=== PATIENT | female | born 1955 | race Caucasian/White ===

== ENCOUNTER 2016-12-26 09:42 | Outpatient (RCR) | payer OTHER ==
[~2016-12-26 09:42] MED LIST: ALBU17IN INH; AMLO10TA2 PO; ASPI81TA13 PO; BACL10TA2 PO; BRIL90TA PO; CETI10TA PO; DIVA500T9 PO; DULO30CA PO; FOLI1TAB2 PO; GABA300C3 PO; MELA3TAB PO; METO25TAB PO; OXYC-517 PO; RANI150T PO; SERT-138 PO; TRAZ50TA4 PO; VITA100T2 PO
== END 2016-12-31 ==
LOC: M PT 09:42
PROVIDERS: ATTEND Nurse Practitioner Adult Health
DX: Z51.89 Encounter for other specified aftercare (principal); I63.8 Other cerebral infarction; R26.81 Unsteadiness on feet; G81.91 Hemiplegia, unspecified affecting right dominant side

== ENCOUNTER 2017-02-16 23:11 | Emergency (ER) | payer OTHER ==
[~2017-02-16] VITALS: Ht 167.6 cm; Wt 63.5 kg
[~2017-02-16 23:11] MED LIST changes: +GABA-282 PO; -GABA300C3 PO
[2017-02-16] MEDS ORDERED: AMLO25TA PO (23:40)
[2017-02-16] MEDS ORDERED: ATOR1TAB18 PO (23:40)
[2017-02-16] MEDS ORDERED: BRIL90TA PO (23:40)
[2017-02-16] MEDS ORDERED: SING5CHW23 PO (23:40)
--- NOTE | 2017-02-17 01:00 | REPUSA ---
CLINICAL HISTORY: Shoulder pain. COMMENTS: Mild osteopenia of the visualized bones. Acute mildly displaced fracture of the humeral surgical neck . Associated moderate glenohumeral joint effusion. Soft tissue calcifications at the humeral insertio n of the rotator cuff tendons. Mild degenerative changes are present at the acromioclavicular and glenohumeral joints. No evidence for osteolytic or osteoblastic change. IMPRESSION: Mild osteopenia of the visualized bones. Acute mildly displaced fracture of the humeral surgical neck. Associated moderate glenohumeral joint effusion. Calcific tendinosis.
[2017-02-17] MEDS ORDERED: PERC5TAB6 PO (01:10)
[2017-02-17 01:40] VITALS: BP 89/50
== END 2017-02-17 02:20 | disposition home or self-care (01) ==
LOC: M ED 23:11 → EDBD 23:11 → M ED 02-17 01:05
DX: S42.211A Unspecified displaced fracture of surgical neck of right humerus, initial encounter for closed fracture (principal); W19.XXXA Unspecified fall, initial encounter; Y92.003 Bedroom of unspecified non-institutional (private) residence as the place of occurrence of the external cause; Y93.89 Activity, other specified; Y99.8 Other external cause status; Z88.8 Allergy status to other drugs, medicaments and biological substances; Z91.040 Latex allergy status; Z79.899 Other long term (current) drug therapy; I10 Essential (primary) hypertension; M54.9 Dorsalgia, unspecified; F41.9 Anxiety disorder, unspecified; F32.9 Major depressive disorder, single episode, unspecified; F17.210 Nicotine dependence, cigarettes, uncomplicated

== ENCOUNTER 2017-02-21 21:33 | Emergency (ER) | payer OTHER ==
[~2017-02-21] VITALS: Ht 167.6 cm; Wt 61.2 kg
[~2017-02-21 21:33] MED LIST changes: +AMLO25TA PO; +ATOR1TAB18 PO; -GABA-282 PO; +GABA300C3 PO; +PERC5TAB6 PO; +SING5CHW23 PO
[2017-02-21 21:47] VITALS: BP 120/57
[2017-02-21] MEDS ORDERED: MONT10TA2 PO (22:00)
[2017-02-21] MEDS ORDERED: ASPI81TA7 PO (22:00)
[2017-02-21] MEDS ORDERED: AMLO10TA2 PO (22:00)
[2017-02-21] MEDS ORDERED: NORCO, ANEXSIA 5/325MG TABLET (HYDROcodone/ACETAMINOPHEN) PO ONE (22:00)
[2017-02-21] MEDS ORDERED: MULT1TAB10 PO (22:01)
[2017-02-21] MEDS ORDERED: PROA1AER PO (22:01)
--- NOTE | 2017-02-21 22:20 | REPUSA ---
CT of the head Clinical history: fall. Comparison: 07/21/2016 Protocol: Multiple axial CT images obtained with 5 mm slice thickness were obtained through the head without administration of contrast. Findings: The ventricles and sulci are symmetric but prominent in size bilaterally. There is a aneury sm clip in the region of the left middle cerebral artery. There are periventricular areas of low atte nuation throughout the deep white matter. There is no evidence of acute hemorrhage or infarct. Chroni c encephalomalacia in the left frontal lobe is stable. There is no midline shift, mass effect, or ext ra-axial fluid collection. The osseous structures are unremarkable. The visualized paranasal sinuses and mastoid air cells are clear. Impression: No acute hemorrhage or infarct. Findings are consistent with stable chronic encephalomala sejal of the left frontal lobe.
[2017-02-21 23:06] LABS: MEAN CORPUSCULAR HEMOGLOBIN 30.1 pg (27.0-33.0); MEAN CORPUSCULAR HGB CONC 31.1 g/dl (32.0-36.5); MEAN CORPUSCULAR VOLUME 96.9 fl (80.0-96.0); RED CELL DISTRIBUTION WIDTH 14.9 % (11.5-14.5); WHITE BLOOD COUNT 9.8 K/mm3 (4.0-10.0)
[2017-02-21 23:15] LABS: INR 1.04
[2017-02-21 23:19] LABS: ANION GAP 6 MEQ/L (8-16); BLOOD UREA NITROGEN 20 MG/DL (7-18); CALCIUM LEVEL 8.3 MG/DL (8.8-10.2); CARBON DIOXIDE LEVEL 29 MEQ/L (21-32); CHLORIDE LEVEL 105 MEQ/L (98-107); CREATININE FOR GFR 0.54 MG/DL (0.55-1.02); GLOMERULAR FILTRATION RATE > 60.0 (>45); GLUCOSE, FASTING 109 MG/DL (80-110); POTASSIUM SERUM 3.7 MEQ/L (3.5-5.1); SODIUM LEVEL 140 MEQ/L (136-145)
--- NOTE | 2017-02-22 08:14 | REP ---
Clinical: Fall. Technique: AP view of the pelvis with neutral and frog lateral views of the right hip. Comparison: 08/06/2016. Findings: Moderate diffuse degenerative changes are appreciated which have progressed since prior examination. No obvious acute fracture or dislocation appreciated. Impression: Diffuse degenerative changes. No obvious acute fracture or dislocation. Signed by Darnell Jordan MD 02/22/2017 08:05 A
--- NOTE | 2017-02-22 08:35 | REP ---
Clinical: Trauma. Fall. Technique: AP and lateral views of the right humerus. Comparison: 02/16/2017. Findings: There is mildly displaced fracture through the proximal humeral metaphysis / surgical neck. No other fracture or dislocation identified. Impression: Continued evidence for fracture through the proximal humeral metaphysis / surgical neck which was identified on 02/16/2017. Signed by Darnell Jordan MD 02/22/2017 08:26 A
--- NOTE | 2017-02-22 08:39 | REP ---
Clinical: Trauma. Fall. Comparison: 08/06/2016 . Findings: The mediastinum and cardiac silhouette are stable and within normal limits and stable. The lung stuart demonstrate chronic changes without acute consolidation, effusion, or pneumothorax. Skeletal structures are intact. Impression: No acute cardiopulmonary process. Signed by Darnell Jordan MD 02/22/2017 08:31 A
--- NOTE | 2017-02-22 09:50 | ECGEPIP ---
Stationary ECG Study [facility] Test Date: 2017-02-21 Pat Name: PHIL WILLAMS Department: Room: - Gender: F Historian [employer]: suhas : 1955 Requested By: HEBER CARRINGTON Order Number: [id number] Reading MD: Whit Rivera Measurements Intervals [place] Rate: 80 P: 70 FL: 169 QRS: 45 QRSD: 75 T: 52 QT: 391 QTc: 452 Interpretive Statements SINUS RHYTHM NO CHANGE 08/06/16 Electronically Signed On 02-22-2017 9:49:49 EDT by Whit Rivera
== END 2017-02-22 01:00 | disposition home or self-care (01) ==
LOC: EDBD 21:33 → M ED 22:32
DX: S09.90XA Unspecified injury of head, initial encounter (principal); S70.01XA Contusion of right hip, initial encounter; S42.211A Unspecified displaced fracture of surgical neck of right humerus, initial encounter for closed fracture; W01.0XXA Fall on same level from slipping, tripping and stumbling without subsequent striking against object, initial encounter; Y92.013 Bedroom of single-family (private) house as the place of occurrence of the external cause; Y93.89 Activity, other specified; Y99.8 Other external cause status; I51.9 Heart disease, unspecified; G89.29 Other chronic pain; Z79.899 Other long term (current) drug therapy; Z79.82 Long term (current) use of aspirin; Z91.040 Latex allergy status; Z88.8 Allergy status to other drugs, medicaments and biological substances; Z91.048 Other nonmedicinal substance allergy status

== ENCOUNTER → 2017-02-26 | Outpatient (CLI) | payer OTHER ==
[~2017-02-26] MED LIST changes: +ASPI81TA7 PO; +MONT10TA2 PO; +MULT1TAB10 PO; +PROA1AER PO
--- NOTE | 2017-02-26 14:16 | REP ---
Clinical: Wrist contusion. Rule out fracture. Technique: Axial images through the right wrist with coronal and sagittal re-formations. Findings: Distal radius/ulna, carpal bones, and visualized metacarpal bones demonstrate age-related osteopenia and moderate arthritic degenerative changes. Findings include cortical irregularities and subchondral cystic changes as well as various areas of joint space narrowing. No obvious, definite acute fracture is appreciated. No significant fluid collection. Impression: Moderate osteopenia and diffuse arthritic degenerative changes. No obvious acute fracture or dislocation. Consider x-ray series for corroboration if pain continues. Signed by Darnell Jordan MD 02/26/2017 02:08 P
== END ==
LOC: M RAD 10:07
PROVIDERS: ATTEND Orthopaedic Surgery
DX: M85.88 Other specified disorders of bone density and structure, other site (principal); M19.031 Primary osteoarthritis, right wrist

== ENCOUNTER → 2017-05-29 | Outpatient (CLI) | payer OTHER ==
[~2017-05-29] MED LIST changes: +ASPI1TAB15 PO; -ASPI81TA13 PO; +ASPI81TA24 PO; -ASPI81TA7 PO; -ATOR1TAB18 PO; +ATOR80TA59 PO; -FOLI1TAB2 PO; +FOLI1TAB4 PO; +GABA-282 PO; -GABA300C3 PO; +METO25TA4 PO; -METO25TAB PO; +PERC5TAB12 PO; -PERC5TAB6 PO; -PROA1AER PO; +PROAAER10 PO; +TRAZ50TA11 PO; -TRAZ50TA4 PO
--- NOTE | 2017-06-02 15:19 | DEXA ---
AP SPINE L1 - L4 1.040 -1.2 0.1 LT FEMUR TOTAL 0.792 -1.7 -0.7 RT FEMUR TOTAL 0.663 -2.7 -1.7 TOTAL BODY TOTAL OTHER DUAL FEMUR FRAX* ASSESSMENT Risk factors: Smoker, adult fracture. 10 year probability of fracture Major osteoporotic fracture 20.5 % Hip fracture 6.2 % COMMENTS: Normal bone densitometry of the spine. There is low bone density of the left hip. There is osteoporosis of the right hip. FOLLOW-UP: Recommendation for the next bone density exam: 2 years. RADHAD
== END ==
LOC: M WHC 10:48
PROVIDERS: ATTEND Orthopaedic Surgery
DX: Z13.820 Encounter for screening for osteoporosis (principal); M16.11 Unilateral primary osteoarthritis, right hip; M85.88 Other specified disorders of bone density and structure, other site

== ENCOUNTER 2018-01-10 18:41 | Emergency (ER) | payer OTHER ==
[2018-01-10] MEDS: ONDANSETRON 4MG/2ML VIAL (J2405) IV (19:15)
[2018-01-10] MEDS: PANTOPRAZOLE 40MG INJ (PROTONIX) (C9113) IV (19:15)
[2018-01-10] MEDS: NS 1,000 ML IV (19:15)
[2018-01-10 19:38] LABS: BASO % 0.1 % (0.0-1.0); HEMATOCRIT 37.7 % (36.0-47.0); HEMOGLOBIN 12.2 g/dl (12.0-16.0); IMMATURE GRANULOCYTE % 0.4 % (0-3.0); LYMPH # 1.3 10^3/uL (1.5-4.5); MEAN CORPUSCULAR HEMOGLOBIN 32.7 pg (27.0-33.0); MEAN CORPUSCULAR HGB CONC 32.4 g/dl (32.0-36.5); MEAN CORPUSCULAR VOLUME 101.1 fl (80.0-96.0); MONO # 0.6 10^3/uL (0.0-0.8); MONO % 6.6 % (0.0-5.0); NEUTROPHILS % 78.9 % (36.0-66.0); PLATELET COUNT, AUTOMATED 280 10^3/uL (150-450); RED BLOOD COUNT 3.73 10^6/uL (4.00-5.40); RED CELL DISTRIBUTION WIDTH 14.2 % (11.5-14.5); WHITE BLOOD COUNT 8.9 10^3/uL (4.0-10.0)
[2018-01-10 19:40] LABS: ALBUMIN 3.6 GM/DL (3.2-5.2); ALBUMIN/GLOBULIN RATIO 0.97 (1.00-1.93); ALKALINE PHOSPHATASE 86 U/L (45-117); ALT/SGPT 9 U/L (12-78); ANION GAP 14 MEQ/L (8-16); AST/SGOT 12 U/L (7-37); BILIRUBIN,DIRECT < 0.1 MG/DL (0.0-0.2); BILIRUBIN,TOTAL 0.3 MG/DL (0.2-1.0); BLOOD UREA NITROGEN 18 MG/DL (7-18); CALCIUM LEVEL 8.4 MG/DL (8.8-10.2); CARBON DIOXIDE LEVEL 22 MEQ/L (21-32); CHLORIDE LEVEL 111 MEQ/L (98-107); CPK CREATINE PHOSPHOKINASE 29 U/L (26-192); CREATININE FOR GFR 0.53 MG/DL (0.55-1.30); GLOMERULAR FILTRATION RATE > 60.0 (>45); GLUCOSE, FASTING 108 MG/DL (70-100); LIPASE 128 U/L (73-393); MB/CK RELATIVE INDEX 3.44 (< OR =4); POTASSIUM SERUM 3.5 MEQ/L (3.5-5.1); SODIUM LEVEL 147 MEQ/L (136-145); TOTAL PROTEIN 7.3 GM/DL (6.4-8.2); TROPONIN I < 0.02 NG/ML (< 0.10)
[2018-01-10 23:23] LABS: KETONE, URINE AUTO RFX 2+ mg/dL (NEGATIVE); MUCUS, URINE RFX SMALL (NEGATIVE); NITRITE, URINE AUTO RFX NEGATIVE (NEGATIVE); RBC, URINE AUTO RFX 0 /HPF (0-3); SPECIFIC GRAVITY UR AUTO RFX 1.025 (1.002-1.035); SQUAM EPITHELIAL CELL UR AURFX 0 /HPF (0-6); WBC, URINE AUTO RFX 6 /HPF (0-3)
[2018-01-10 23:24] LABS: LEUKOCYTE ESTERASE UR AUTO RFX TRACE (NEGATIVE)
== END 2018-01-11 00:12 | disposition home or self-care (01) ==
LOC: M ED 01-11 00:12
DX: K29.70 Gastritis, unspecified, without bleeding (principal); I10 Essential (primary) hypertension; G89.29 Other chronic pain; F17.210 Nicotine dependence, cigarettes, uncomplicated; Z79.899 Other long term (current) drug therapy; Z79.82 Long term (current) use of aspirin; Z91.040 Latex allergy status; Z88.8 Allergy status to other drugs, medicaments and biological substances; Z86.73 Personal history of transient ischemic attack (TIA), and cerebral infarction without residual deficits; Z82.49 Family history of ischemic heart disease and other diseases of the circulatory system; Z98.890 Other specified postprocedural states
CPT/HCPCS: C9113

== ENCOUNTER 2018-07-07 10:00 | Inpatient (IN) | payer MEDICARE, OTHER, MEDICAID ==
[2018-07-07 11:04] LABS: BASO % 0.2 % (0.0-1.0); EOS # 0.1 10^3/uL (0.0-0.50); EOS % 1.5 % (0.0-3.0); HEMATOCRIT 31.9 % (36.0-47.0); HEMOGLOBIN 10.3 g/dl (12.0-15.5); IMMATURE GRANULOCYTE % 0.4 % (0-3.0); LYMPH # 0.9 10^3/uL (1.5-4.5); LYMPH % 10.5 % (24.0-44.0); MEAN CORPUSCULAR HGB CONC 32.3 g/dl (32.0-36.5); MEAN CORPUSCULAR VOLUME 96.1 fl (80.0-96.0); MONO # 0.5 10^3/uL (0.0-0.8); MONO % 5.5 % (0.0-5.0); NEUTROPHILS % 81.9 % (36.0-66.0); PLATELET COUNT, AUTOMATED 252 10^3/uL (150-450); RED BLOOD COUNT 3.32 10^6/uL (4.00-5.40); RED CELL DISTRIBUTION WIDTH 14.3 % (11.5-14.5); VENOUS BASE EXCESS 2.3 (-2.0-2.0); VENOUS HCO3 26.6 MEQ/L (23.0-27.0); VENOUS O2 SATURATION 97.4 % (60.0-80.0); VENOUS PARTIAL PRESSURE CO2 39.9 mmHg (38.0-50.0); VENOUS PARTIAL PRESSURE O2 91.9 mmHg (30.0-50.0); VENOUS PH 7.441 UNITS (7.330-7.430); VENOUS STANDARD HCO3 26.5 MEQ/L; VENOUS TOTAL CO2 27.8 MEQ/L (24.0-28.0); WHITE BLOOD COUNT 8.6 10^3/uL (4.0-10.0)
[2018-07-07 11:24] LABS: ANION GAP 9 MEQ/L (8-16); BLOOD UREA NITROGEN 14 MG/DL (7-18); CALCIUM LEVEL 8.5 MG/DL (8.8-10.2); CARBON DIOXIDE LEVEL 29 MEQ/L (21-32); CHLORIDE LEVEL 104 MEQ/L (98-107); CREATININE FOR GFR 0.52 MG/DL (0.55-1.30); GLOMERULAR FILTRATION RATE > 60.0 (>45); GLUCOSE, FASTING 77 MG/DL (70-100); POTASSIUM SERUM 3.4 MEQ/L (3.5-5.1); SODIUM LEVEL 142 MEQ/L (136-145)
[2018-07-07 11:28] LABS: LACTIC ACID SEPSIS PROTOCOL 0.8 MMOL/L (0.4-2.0)
[2018-07-07 11:32] LABS: ERYTHROCYTE SEDIMENTATION RATE 83 mm/hr (0-30)
[2018-07-07 11:53] LABS: ESTIMATED AVERAGE GLUCOSE 88 MG/DL (60-110); HEMOGLOBIN A1c 4.7 %
[2018-07-07] MEDS ORDERED: CETIRIZINE (ZyrTEC) 10 MG TAB PO ×2 (15:45)
[2018-07-07] MEDS: POTASSIUM CHLORIDE 10 MEQ SR TABLET PO ×4 (16:04→20:44)
[2018-07-07] MEDS: GABAPENTIN 300 MG CAP PO ×4 (16:04→20:44)
[2018-07-07] MEDS: FAMOTIDINE 20 MG TAB PO ×2 (20:44)
[2018-07-07] MEDS: SIMVASTATIN 40 MG TAB PO ×2 (20:44)
[2018-07-07] MEDS: HEPARIN SOD (PORCINE) 5000 UNITS/ML VIAL SC ×2 (21:01)
[2018-07-07] MEDS: traMADol 50 MG TAB PO ×2 (21:01)
[2018-07-08] MEDS: traMADol 50 MG TAB PO ×8 (02:18→20:57)
[2018-07-08] MEDS: HEPARIN SOD (PORCINE) 5000 UNITS/ML VIAL SC ×6 (05:12→21:04)
[2018-07-08 06:53] LABS: HEMOGLOBIN 9.7 g/dl (12.0-15.5); MEAN CORPUSCULAR HEMOGLOBIN 30.5 pg (27.0-33.0); MEAN CORPUSCULAR HGB CONC 32.3 g/dl (32.0-36.5); MEAN CORPUSCULAR VOLUME 94.3 fl (80.0-96.0); PLATELET COUNT, AUTOMATED 298 10^3/uL (150-450); RED BLOOD COUNT 3.18 10^6/uL (4.00-5.40); RED CELL DISTRIBUTION WIDTH 14.4 % (11.5-14.5); WHITE BLOOD COUNT 8.5 10^3/uL (4.0-10.0)
[2018-07-08 07:14] LABS: ANION GAP 5 MEQ/L (8-16); BLOOD UREA NITROGEN 12 MG/DL (7-18); CALCIUM LEVEL 8.8 MG/DL (8.8-10.2); CARBON DIOXIDE LEVEL 28 MEQ/L (21-32); CHLORIDE LEVEL 110 MEQ/L (98-107); CREATININE FOR GFR 0.49 MG/DL (0.55-1.30); GLOMERULAR FILTRATION RATE > 60.0 (>45); GLUCOSE, FASTING 83 MG/DL (70-100); POTASSIUM SERUM 4.6 MEQ/L (3.5-5.1); SODIUM LEVEL 143 MEQ/L (136-145)
[2018-07-08] MEDS: GABAPENTIN 300 MG CAP PO ×6 (09:06→20:57)
[2018-07-08] MEDS: FAMOTIDINE 20 MG TAB PO ×4 (09:06→20:57)
[2018-07-08] MEDS: ASPIRIN 81 MG ENTERIC TAB PO ×2 (09:06)
[2018-07-08] MEDS: SERTRALINE 100 MG TAB PO ×2 (09:06)
[2018-07-08] MEDS: buPROPion 75 MG TAB PO ×2 (13:24)
[2018-07-08] MEDS: VANCOMYCIN HCL 1,000 MG, VIAL MATE ADAPTER 1 EACH in D5W 250 ML IV ×2 (13:45)
[2018-07-08] MEDS ORDERED: GASTROGRAFIN SOLUTION 30ML (Q9963) As Ordered ×2 (16:16)
[2018-07-08] MEDS ORDERED: READI-CAT 2 As Ordered ×2 (16:56)
[2018-07-08] MEDS ORDERED: E-Z-PAQUE 96% w/w SUSP 176GM BTL As Ordered ×2 (16:57)
[2018-07-08] MEDS ORDERED: E-Z-HD 98% w/w 340GM SUSP BTL As Ordered ×2 (16:59)
[2018-07-08] MEDS: VANCOMYCIN HCL 500 MG in D5W MINI-BAG PLUS 100 ML IV (17:23)
[2018-07-08] MEDS: SIMVASTATIN 40 MG TAB PO ×2 (20:57)
[2018-07-09] MEDS: VANCOMYCIN HCL 500 MG in D5W MINI-BAG PLUS 100 ML IV ×2 (03:51→15:41)
[2018-07-09] MEDS: traMADol 50 MG TAB PO ×6 (03:51→15:12)
[2018-07-09] MEDS: HEPARIN SOD (PORCINE) 5000 UNITS/ML VIAL SC ×4 (05:40→09:00)
[2018-07-09 06:20] LABS: HEMOGLOBIN 9.5 g/dl (12.0-15.5); MEAN CORPUSCULAR HGB CONC 31.7 g/dl (32.0-36.5); PLATELET COUNT, AUTOMATED 253 10^3/uL (150-450); RED BLOOD COUNT 3.06 10^6/uL (4.00-5.40); RED CELL DISTRIBUTION WIDTH 14.5 % (11.5-14.5); WHITE BLOOD COUNT 10.8 10^3/uL (4.0-10.0)
[2018-07-09 06:39] LABS: ANION GAP 11 MEQ/L (8-16); BLOOD UREA NITROGEN 9 MG/DL (7-18); CALCIUM LEVEL 8.1 MG/DL (8.8-10.2); CARBON DIOXIDE LEVEL 25 MEQ/L (21-32); CHLORIDE LEVEL 106 MEQ/L (98-107); CREATININE FOR GFR 0.57 MG/DL (0.55-1.30); GLOMERULAR FILTRATION RATE > 60.0 (>45); GLUCOSE, FASTING 79 MG/DL (70-100); POTASSIUM SERUM 3.8 MEQ/L (3.5-5.1); SODIUM LEVEL 142 MEQ/L (136-145)
[2018-07-09] MEDS: ASPIRIN 81 MG ENTERIC TAB PO ×2 (09:00)
[2018-07-09] MEDS: SERTRALINE 100 MG TAB PO ×2 (09:10)
[2018-07-09] MEDS: FAMOTIDINE 20 MG TAB PO ×4 (09:10→20:38)
[2018-07-09] MEDS: buPROPion 75 MG TAB PO ×2 (09:10)
[2018-07-09] MEDS: GABAPENTIN 300 MG CAP PO ×6 (09:10→20:39)
[2018-07-09 15:32] LABS: VANCOMYCIN LEVEL TROUGH 8.1 UG/ML (10.0-20.0)
[2018-07-09] MEDS ORDERED: LIDOCAINE 2% INJ 100 MG/5 ML SDV (FOR ANES.) As Ordered ×2 (17:26)
[2018-07-09] MEDS ORDERED: ROCURONIUM BROMIDE 50 MG/5 ML VIAL As Ordered ×2 (17:26)
[2018-07-09] MEDS ORDERED: dexameTHASONE 4 MG/ML 1ML VIAL (J1100) As Ordered ×2 (17:26)
[2018-07-09] MEDS ORDERED: ONDANSETRON 4MG/2ML VIAL (J2405) As Ordered ×2 (17:26)
[2018-07-09] MEDS ORDERED: KETOROLAC 60 MG/2 ML VIAL (J1885) As Ordered ×2 (17:26)
[2018-07-09] MEDS ORDERED: PROPOFOL 200 MG/20 ML VIAL As Ordered ×2 (17:26)
[2018-07-09] MEDS ORDERED: MIDAZOLAM INJ 2 MG/2 ML VIAL (J2250) As Ordered ×2 (17:26)
[2018-07-09] MEDS ORDERED: fentaNYL 100 MCG/2 ML INJECTION (J3010) As Ordered ×2 (17:27)
[2018-07-09] MEDS ORDERED: PROPOFOL 500 MG/50 ML VIAL As Ordered ×2 (17:54)
[2018-07-09] MEDS: LIDOCAINE 1% SDV INJ 30 ML VIAL As Ordered ×2 (18:22)
[2018-07-09] MEDS ORDERED: ONDANSETRON 4MG/2ML VIAL (J2405) IV ×2 (19:15)
[2018-07-09] MEDS ORDERED: LR 1,000 ML IV ×2 (19:15)
[2018-07-09] MEDS ORDERED: fentaNYL 100 MCG/2 ML INJECTION (J3010) IV ×2 (19:15)
[2018-07-09] MEDS ORDERED: PERCOCET 5MG/325MG TAB PO ×2 (19:15)
[2018-07-09] MEDS: SIMVASTATIN 40 MG TAB PO ×2 (20:39)
[2018-07-09] MEDS: VANCOMYCIN HCL 750 MG, VIAL MATE ADAPTER 1 EACH in D5W 250 ML IV ×2 (22:43)
[2018-07-10] MEDS: traMADol 50 MG TAB PO ×8 (05:12→20:41)
[2018-07-10 05:56] LABS: HEMATOCRIT 29.5 % (36.0-47.0); HEMOGLOBIN 9.4 g/dl (12.0-15.5); MEAN CORPUSCULAR HEMOGLOBIN 30.7 pg (27.0-33.0); MEAN CORPUSCULAR HGB CONC 31.9 g/dl (32.0-36.5); MEAN CORPUSCULAR VOLUME 96.4 fl (80.0-96.0); PLATELET COUNT, AUTOMATED 298 10^3/uL (150-450); RED BLOOD COUNT 3.06 10^6/uL (4.00-5.40); RED CELL DISTRIBUTION WIDTH 14.4 % (11.5-14.5); WHITE BLOOD COUNT 7.8 10^3/uL (4.0-10.0)
[2018-07-10 06:10] LABS: ANION GAP 5 MEQ/L (8-16); BLOOD UREA NITROGEN 8 MG/DL (7-18); CALCIUM LEVEL 8.1 MG/DL (8.8-10.2); CARBON DIOXIDE LEVEL 31 MEQ/L (21-32); CHLORIDE LEVEL 106 MEQ/L (98-107); CREATININE FOR GFR 0.54 MG/DL (0.55-1.30); GLOMERULAR FILTRATION RATE > 60.0 (>45); GLUCOSE, FASTING 84 MG/DL (70-100); POTASSIUM SERUM 3.3 MEQ/L (3.5-5.1); SODIUM LEVEL 142 MEQ/L (136-145)
[2018-07-10] MEDS: SERTRALINE 100 MG TAB PO ×2 (09:05)
[2018-07-10] MEDS: FAMOTIDINE 20 MG TAB PO ×4 (09:05→20:40)
[2018-07-10] MEDS: VANCOMYCIN HCL 750 MG, VIAL MATE ADAPTER 1 EACH in D5W 250 ML IV ×4 (09:05→21:24)
[2018-07-10] MEDS: GABAPENTIN 300 MG CAP PO ×6 (09:06→20:40)
[2018-07-10] MEDS: POTASSIUM CHLORIDE 10 MEQ SR TABLET PO ×2 (09:07)
[2018-07-10] MEDS: buPROPion 75 MG TAB PO ×2 (13:13)
[2018-07-10] MEDS: ASPIRIN 81 MG ENTERIC TAB PO ×2 (13:14)
[2018-07-10] MEDS: HEPARIN SOD (PORCINE) 5000 UNITS/ML VIAL SC ×8 (14:00→20:46)
[2018-07-10] MEDS: SIMVASTATIN 40 MG TAB PO ×2 (20:40)
[2018-07-10 21:26] LABS: VANCOMYCIN LEVEL TROUGH 18.7 UG/ML (10.0-20.0)
[2018-07-11] MEDS: HEPARIN SOD (PORCINE) 5000 UNITS/ML VIAL SC ×6 (06:00→20:38)
[2018-07-11] MEDS: traMADol 50 MG TAB PO ×8 (06:13→20:37)
[2018-07-11 06:27] LABS: HEMATOCRIT 28.6 % (36.0-47.0); HEMOGLOBIN 9.2 g/dl (12.0-15.5); MEAN CORPUSCULAR HGB CONC 32.2 g/dl (32.0-36.5); MEAN CORPUSCULAR VOLUME 96.3 fl (80.0-96.0); PLATELET COUNT, AUTOMATED 290 10^3/uL (150-450); RED BLOOD COUNT 2.97 10^6/uL (4.00-5.40); RED CELL DISTRIBUTION WIDTH 14.4 % (11.5-14.5); WHITE BLOOD COUNT 7.4 10^3/uL (4.0-10.0)
[2018-07-11 06:46] LABS: ANION GAP 6 MEQ/L (8-16); BLOOD UREA NITROGEN 8 MG/DL (7-18); CARBON DIOXIDE LEVEL 30 MEQ/L (21-32); CHLORIDE LEVEL 108 MEQ/L (98-107); CREATININE FOR GFR 0.54 MG/DL (0.55-1.30); GLOMERULAR FILTRATION RATE > 60.0 (>45); GLUCOSE, FASTING 92 MG/DL (70-100); POTASSIUM SERUM 3.8 MEQ/L (3.5-5.1); SODIUM LEVEL 144 MEQ/L (136-145)
[2018-07-11 06:47] LABS: CALCIUM LEVEL 8.2 MG/DL (8.8-10.2)
[2018-07-11] MEDS: ASPIRIN 81 MG ENTERIC TAB PO ×2 (10:16)
[2018-07-11] MEDS: buPROPion 100 MG TAB PO ×2 (10:16)
[2018-07-11] MEDS: FAMOTIDINE 20 MG TAB PO ×4 (10:16→20:36)
[2018-07-11] MEDS: SERTRALINE 100 MG TAB PO ×2 (10:16)
[2018-07-11] MEDS: GABAPENTIN 300 MG CAP PO ×6 (10:16→20:36)
[2018-07-11] MEDS: VANCOMYCIN HCL 750 MG, VIAL MATE ADAPTER 1 EACH in D5W 250 ML IV ×4 (11:10→22:41)
[2018-07-11] MEDS: SIMVASTATIN 40 MG TAB PO ×2 (20:36)
[2018-07-12] MEDS: HEPARIN SOD (PORCINE) 5000 UNITS/ML VIAL SC ×6 (05:14→21:00)
[2018-07-12 05:50] LABS: HEMATOCRIT 29.9 % (36.0-47.0); HEMOGLOBIN 9.6 g/dl (12.0-15.5); MEAN CORPUSCULAR HEMOGLOBIN 30.6 pg (27.0-33.0); MEAN CORPUSCULAR HGB CONC 32.1 g/dl (32.0-36.5); MEAN CORPUSCULAR VOLUME 95.2 fl (80.0-96.0); PLATELET COUNT, AUTOMATED 324 10^3/uL (150-450); RED BLOOD COUNT 3.14 10^6/uL (4.00-5.40); RED CELL DISTRIBUTION WIDTH 14.6 % (11.5-14.5); WHITE BLOOD COUNT 8.1 10^3/uL (4.0-10.0)
[2018-07-12 06:12] LABS: ANION GAP 7 MEQ/L (8-16); BLOOD UREA NITROGEN 12 MG/DL (7-18); CALCIUM LEVEL 8.8 MG/DL (8.8-10.2); CARBON DIOXIDE LEVEL 30 MEQ/L (21-32); CHLORIDE LEVEL 107 MEQ/L (98-107); CREATININE FOR GFR 0.56 MG/DL (0.55-1.30); GLOMERULAR FILTRATION RATE > 60.0 (>45); GLUCOSE, FASTING 91 MG/DL (70-100); POTASSIUM SERUM 3.8 MEQ/L (3.5-5.1); SODIUM LEVEL 144 MEQ/L (136-145)
[2018-07-12] MEDS: BACLOFEN 5MG PER 1/2 TABLET PO ×2 (08:08)
[2018-07-12] MEDS: LACTOBACILLUS ACIDOPHILUS CAP (BACID) PO ×4 (08:08→17:16)
[2018-07-12] MEDS: ASPIRIN 81 MG ENTERIC TAB PO ×2 (08:08)
[2018-07-12] MEDS: FAMOTIDINE 20 MG TAB PO ×4 (08:09→20:17)
[2018-07-12] MEDS: GABAPENTIN 300 MG CAP PO ×6 (08:09→20:17)
[2018-07-12] MEDS: SERTRALINE 100 MG TAB PO ×2 (08:09)
[2018-07-12] MEDS: traMADol 50 MG TAB PO ×6 (08:12→20:18)
[2018-07-12] MEDS: buPROPion 100 MG TAB PO ×2 (08:12)
[2018-07-12] MEDS: SIMVASTATIN 40 MG TAB PO ×2 (20:17)
[2018-07-13] MEDS: traMADol 50 MG TAB PO ×6 (02:23→20:03)
[2018-07-13] MEDS: HEPARIN SOD (PORCINE) 5000 UNITS/ML VIAL SC ×6 (05:41→21:00)
[2018-07-13 05:50] LABS: HEMATOCRIT 27.5 % (36.0-47.0); HEMOGLOBIN 8.6 g/dl (12.0-15.5); MEAN CORPUSCULAR HEMOGLOBIN 29.9 pg (27.0-33.0); MEAN CORPUSCULAR HGB CONC 31.3 g/dl (32.0-36.5); MEAN CORPUSCULAR VOLUME 95.5 fl (80.0-96.0); PLATELET COUNT, AUTOMATED 306 10^3/uL (150-450); RED BLOOD COUNT 2.88 10^6/uL (4.00-5.40); RED CELL DISTRIBUTION WIDTH 14.6 % (11.5-14.5); WHITE BLOOD COUNT 8.2 10^3/uL (4.0-10.0)
[2018-07-13 06:22] LABS: ANION GAP 7 MEQ/L (8-16); BLOOD UREA NITROGEN 12 MG/DL (7-18); CALCIUM LEVEL 8.5 MG/DL (8.8-10.2); CARBON DIOXIDE LEVEL 30 MEQ/L (21-32); CHLORIDE LEVEL 105 MEQ/L (98-107); CREATININE FOR GFR 0.58 MG/DL (0.55-1.30); GLOMERULAR FILTRATION RATE > 60.0 (>45); GLUCOSE, FASTING 90 MG/DL (70-100); POTASSIUM SERUM 3.8 MEQ/L (3.5-5.1); SODIUM LEVEL 142 MEQ/L (136-145)
[2018-07-13] MEDS: ASPIRIN 81 MG ENTERIC TAB PO ×2 (09:14)
[2018-07-13] MEDS: LACTOBACILLUS ACIDOPHILUS CAP (BACID) PO ×4 (09:14→17:10)
[2018-07-13] MEDS: SERTRALINE 100 MG TAB PO ×2 (09:14)
[2018-07-13] MEDS: FAMOTIDINE 20 MG TAB PO ×4 (09:14→20:02)
[2018-07-13] MEDS: GABAPENTIN 300 MG CAP PO ×6 (09:14→20:01)
[2018-07-13] MEDS: buPROPion 100 MG TAB PO ×2 (09:14)
[2018-07-13] MEDS: KETOROLAC 30 MG/ML VIAL (J1885) IV ×2 (09:29)
[2018-07-13] MEDS: PERCOCET 5MG/325MG TAB PO ×2 (09:29)
[2018-07-13] MEDS: SIMVASTATIN 40 MG TAB PO ×2 (20:02)
[2018-07-14] MEDS: HEPARIN SOD (PORCINE) 5000 UNITS/ML VIAL SC ×8 (05:05→21:08)
[2018-07-14 06:22] LABS: HEMATOCRIT 27.7 % (36.0-47.0); HEMOGLOBIN 8.7 g/dl (12.0-15.5); MEAN CORPUSCULAR HEMOGLOBIN 30.3 pg (27.0-33.0); MEAN CORPUSCULAR HGB CONC 31.4 g/dl (32.0-36.5); MEAN CORPUSCULAR VOLUME 96.5 fl (80.0-96.0); PLATELET COUNT, AUTOMATED 336 10^3/uL (150-450); RED BLOOD COUNT 2.87 10^6/uL (4.00-5.40); RED CELL DISTRIBUTION WIDTH 14.4 % (11.5-14.5); WHITE BLOOD COUNT 7.1 10^3/uL (4.0-10.0)
[2018-07-14 06:33] LABS: ANION GAP 7 MEQ/L (8-16); BLOOD UREA NITROGEN 15 MG/DL (7-18); CALCIUM LEVEL 8.7 MG/DL (8.8-10.2); CARBON DIOXIDE LEVEL 30 MEQ/L (21-32); CHLORIDE LEVEL 106 MEQ/L (98-107); CREATININE FOR GFR 0.55 MG/DL (0.55-1.30); GLOMERULAR FILTRATION RATE > 60.0 (>45); GLUCOSE, FASTING 82 MG/DL (70-100); SODIUM LEVEL 143 MEQ/L (136-145)
[2018-07-14] MEDS: SERTRALINE 100 MG TAB PO ×2 (08:14)
[2018-07-14] MEDS: buPROPion 100 MG TAB PO ×2 (08:14)
[2018-07-14] MEDS: LACTOBACILLUS ACIDOPHILUS CAP (BACID) PO ×4 (08:14→18:33)
[2018-07-14] MEDS: FAMOTIDINE 20 MG TAB PO ×4 (08:14→21:08)
[2018-07-14] MEDS: ASPIRIN 81 MG ENTERIC TAB PO ×2 (08:14)
[2018-07-14] MEDS: GABAPENTIN 300 MG CAP PO ×6 (08:14→21:07)
[2018-07-14] MEDS: SENOKOT S TAB PO ×6 (09:00→21:08)
[2018-07-14] MEDS: traMADol 50 MG TAB PO ×4 (11:44→18:37)
[2018-07-14] MEDS: SIMVASTATIN 40 MG TAB PO ×2 (21:08)
[2018-07-15] MEDS: HEPARIN SOD (PORCINE) 5000 UNITS/ML VIAL SC ×6 (05:16→21:18)
[2018-07-15] MEDS: LACTOBACILLUS ACIDOPHILUS CAP (BACID) PO ×4 (07:51→18:14)
[2018-07-15] MEDS: traMADol 50 MG TAB PO ×8 (07:53→21:22)
[2018-07-15] MEDS: SENOKOT S TAB PO ×4 (09:00→21:00)
[2018-07-15] MEDS: FAMOTIDINE 20 MG TAB PO ×4 (10:04→21:18)
[2018-07-15] MEDS: buPROPion 100 MG TAB PO ×2 (10:04)
[2018-07-15] MEDS: SERTRALINE 100 MG TAB PO ×2 (10:05)
[2018-07-15] MEDS: ASPIRIN 81 MG ENTERIC TAB PO ×2 (10:05)
[2018-07-15] MEDS: GABAPENTIN 300 MG CAP PO ×6 (10:05→21:18)
[2018-07-15] MEDS: SIMVASTATIN 40 MG TAB PO ×2 (21:18)
[2018-07-16] MEDS: HEPARIN SOD (PORCINE) 5000 UNITS/ML VIAL SC ×6 (06:00→20:22)
[2018-07-16] MEDS: LACTOBACILLUS ACIDOPHILUS CAP (BACID) PO ×4 (08:24→17:09)
[2018-07-16] MEDS: SENOKOT S TAB PO ×4 (08:25→20:22)
[2018-07-16] MEDS: SERTRALINE 100 MG TAB PO ×2 (08:25)
[2018-07-16] MEDS: GABAPENTIN 300 MG CAP PO ×6 (08:25→20:22)
[2018-07-16] MEDS: ASPIRIN 81 MG ENTERIC TAB PO ×2 (08:25)
[2018-07-16] MEDS: FAMOTIDINE 20 MG TAB PO ×4 (08:25→20:22)
[2018-07-16] MEDS: buPROPion 100 MG TAB PO ×2 (08:25)
[2018-07-16] MEDS: traMADol 50 MG TAB PO ×4 (08:29→20:33)
[2018-07-16 12:41] LABS: HEMATOCRIT 27.1 % (36.0-47.0); HEMOGLOBIN 8.6 g/dl (12.0-15.5); MEAN CORPUSCULAR HEMOGLOBIN 30.7 pg (27.0-33.0); MEAN CORPUSCULAR HGB CONC 31.7 g/dl (32.0-36.5); MEAN CORPUSCULAR VOLUME 96.8 fl (80.0-96.0); PLATELET COUNT, AUTOMATED 354 10^3/uL (150-450); RED CELL DISTRIBUTION WIDTH 14.7 % (11.5-14.5); WHITE BLOOD COUNT 7.6 10^3/uL (4.0-10.0)
[2018-07-16 13:02] LABS: ANION GAP 8 MEQ/L (8-16); BLOOD UREA NITROGEN 19 MG/DL (7-18); CALCIUM LEVEL 8.7 MG/DL (8.8-10.2); CARBON DIOXIDE LEVEL 30 MEQ/L (21-32); CHLORIDE LEVEL 105 MEQ/L (98-107); CREATININE FOR GFR 0.63 MG/DL (0.55-1.30); GLOMERULAR FILTRATION RATE > 60.0 (>45); GLUCOSE, FASTING 78 MG/DL (70-100); POTASSIUM SERUM 4.6 MEQ/L (3.5-5.1); SODIUM LEVEL 143 MEQ/L (136-145)
[2018-07-16] MEDS: SIMVASTATIN 40 MG TAB PO ×2 (20:22)
[2018-07-17] MEDS: traMADol 50 MG TAB PO ×4 (04:16→10:35)
[2018-07-17] MEDS: HEPARIN SOD (PORCINE) 5000 UNITS/ML VIAL SC ×2 (05:49)
[2018-07-17] MEDS: LACTOBACILLUS ACIDOPHILUS CAP (BACID) PO ×2 (09:19)
[2018-07-17] MEDS: buPROPion 100 MG TAB PO ×2 (09:19)
[2018-07-17] MEDS: GABAPENTIN 300 MG CAP PO ×2 (09:19)
[2018-07-17] MEDS: ASPIRIN 81 MG ENTERIC TAB PO ×2 (09:19)
[2018-07-17] MEDS: SERTRALINE 100 MG TAB PO ×2 (09:19)
[2018-07-17] MEDS: FAMOTIDINE 20 MG TAB PO ×2 (09:19)
[2018-07-17] MEDS: SENOKOT S TAB PO ×2 (09:20)
[2018-07-17] MEDS ORDERED: SIMVASTATIN 10 MG TAB PO ×2 (21:00)
== END 2018-07-17 11:00 | DRG 361 ==
LOC: M MSPAV 07-12 17:50 → M ED 10:00 → M ED INP 15:29 → M MS5PR 19:00
PROC: 0HB6XZZ Excision of Back Skin, External Approach (ICD-10-PCS; principal; 2018-07-09 16:30)
PROC: 0UJH7ZZ Inspection of Vagina and Cul-de-sac, Via Natural or Artificial Opening (ICD-10-PCS; 2018-07-09 16:30)
DX: L89.153 Pressure ulcer of sacral region, stage 3 (principal); E43 Unspecified severe protein-calorie malnutrition; I69.351 Hemiplegia and hemiparesis following cerebral infarction affecting right dominant side; E78.5 Hyperlipidemia, unspecified; F32.9 Major depressive disorder, single episode, unspecified; Z79.82 Long term (current) use of aspirin; Z79.891 Long term (current) use of opiate analgesic; Z79.899 Other long term (current) drug therapy; E87.6 Hypokalemia; Z91.040 Latex allergy status; Z88.8 Allergy status to other drugs, medicaments and biological substances; M16.0 Bilateral primary osteoarthritis of hip; M21.371 Foot drop, right foot; K64.4 Residual hemorrhoidal skin tags; K59.00 Constipation, unspecified